=== PATIENT | female | born 1955 | race Caucasian/White ===

== ENCOUNTER 2016-12-29 12:53 | Emergency (ER) | payer OTHER ==
[2016-12-29] MEDS ORDERED: TETANUS/DIPHTHERIA/PERTUSSIS 0.5 ML SYRINGE IM ONE ×2 (15:50→15:57)
[2016-12-29] MEDS ORDERED: AMOX/CLAV 875 MG/125 MG TABLET PO STA (15:50)
[2016-12-29] MEDS ORDERED: AMOX/CLAV 875 MG/125 MG TABLET PO ONE (15:57)
== END 2016-12-29 16:18 | disposition home or self-care (01) ==
DX: S61.251A Open bite of left index finger without damage to nail, initial encounter (principal); L08.9 Local infection of the skin and subcutaneous tissue, unspecified; W54.0XXA Bitten by dog, initial encounter; Z23 Encounter for immunization
CPT/HCPCS: 90471; 90715; 99283; A9270

== ENCOUNTER 2017-06-23 10:29 | Outpatient (CLI) | payer OTHER ==
--- NOTE | 2017-06-23 13:07 | XRAY Report ---
RIGHT HIP AND PELVIS: 06/23/2017 CLINICAL INDICATION: Pain. FINDINGS: Frontal view of the hips and pelvis and frogleg lateral view of the right hip demonstrate [id number] right hip osteoarthritis, with subchondral cysts and joint space narrowing. There is no evidence of acute fracture or dislocation. The left hip appears unremarkable. IMPRESSION: [id number] RIGHT HIP OSTEOARTHRITIS. JOB #: [id number] EXT JOB #:[id number]
== END 2017-06-23 10:30 | disposition home or self-care (01) ==
LOC: DI.S 10:29
PROVIDERS: ATTEND Internal Medicine
DX: M16.11 Unilateral primary osteoarthritis, right hip (principal)

== ENCOUNTER 2020-10-26 08:00 | Outpatient (CLI) | payer MEDICARE, OTHER | END 2020-10-26 23:59 | disposition home or self-care (01) | LOC: LAB.S 08:00 | PROVIDERS: ATTEND Emergency Medicine | DX: R30.0 Dysuria (principal) | CPT/HCPCS: 87086; 87181 ==

== ENCOUNTER 2021-02-12 13:48 | Outpatient (CLI) | payer MEDICARE, OTHER | END 2021-02-12 13:49 | disposition home or self-care (01) | LOC: RT 13:48 | PROVIDERS: ATTEND Nurse Practitioner Family | DX: R06.00 Dyspnea, unspecified (principal) | CPT/HCPCS: 94010; 94727; 94729 ==

== ENCOUNTER 2021-02-12 14:49 | Outpatient (CLI) | payer MEDICARE, OTHER ==
--- NOTE | 2021-02-12 16:15 | XRAY Report ---
PROCEDURE: Chest 2 View X-Ray INDICATIONS: DYSPNEA TECHNIQUE: 2 view(s) of the chest. COMPARISON: None. FINDINGS: Surgical changes and devices: None. Lungs and pleura: No pleural effusions or pneumothorax. There is a rounded density projecting over t he midthoracic spine on the lateral view which is not seen on the frontal view. Lungs are otherwise c lear. Mediastinum: Mediastinal contours are normal. Heart size is normal. Bones and chest wall: No suspicious bony abnormalities. Soft tissues appear unremarkable. IMPRESSION: Indeterminate opacity is described above, related either to the posterior lung parenchym a or the midthoracic spine. Chest CT with intravenous contrast is recommended for further assessment. Reviewed by: James Overton MD on 02/12/2021 4:13 PM PDT Approved by: James Overton MD on 02/12/2021 4:13 PM PDT Station ID: [id number]
== END 2021-02-12 14:50 | disposition home or self-care (01) ==
LOC: DI 14:49
PROVIDERS: ATTEND Nurse Practitioner Family
DX: R06.00 Dyspnea, unspecified (principal); R91.8 Other nonspecific abnormal finding of lung field
CPT/HCPCS: 94010; 94727; 94729

== ENCOUNTER 2021-03-20 12:19 | Outpatient (CLI) | payer MEDICARE, OTHER ==
[2021-03-20] MEDS ORDERED: IOPAMIDOL-300 100 ML VIAL ONE (12:35)
[2021-03-20 13:01] LABS: CREATININE 0.6 mg/dL (0.4-1.0)
[2021-03-20] MEDS ORDERED: IOPAMIDOL-300 100 ML VIAL IVP ONE (13:41)
--- NOTE | 2021-03-20 16:38 | CT Report ---
PROCEDURE: CHEST W INDICATIONS: Abnormal chest x-ray, severe COPD and possible lung mass seen on the lateral view overl sebastian the mid thoracic spine. CONTRAST: IV CONTRAST: Isovue 300 ml: 100 PO CONTRAST: *NO PO CONTRAST TECHNIQUE: After the administration of intravenous contrast, 5 mm thick sections acquired from the pulmonary api urszula to the posterior costophrenic angles. 7 mm thick coronal MIP reformats were acquired. For radia tion dose reduction, the following was used: automated exposure control, adjustment of mA and/or kV according to patient size. COMPARISON: None. FINDINGS: Image quality: Excellent. Lungs and pleura: No acute air space opacities. Lung volumes are large, COPD is suspected. No pleur al effusions or pneumothorax. Central and peripheral airways are patent and normal in caliber. Mediastinum: Heart size is normal. No pericardial effusion. No mediastinal or hilar adenopathy by size criteria. Thoracic aorta and central pulmonary arteries are normal in size. Esophagus is holley l in caliber. No hiatal hernia. Bones and chest wall: No suspicious bony lesions. No vertebral body compression fractures. No axil mayelin or supraclavicular adenopathy by size criteria. Thyroid gland appears normal where well seen.. Abdomen: Visualized upper abdominal solid organs appear normal. Upper abdominal bowel loops are nor mal in caliber. IMPRESSION: At the mid thoracic spine there is relatively prominent degree of degenerative disc disease with seco ndary sclerosis along the endplates of several of the vertebral bodies. Superimposition of this radio density on the spine and superimposed on additional chest wall structures appears to have created the radiodensity of recent plain film concern. There is no lung mass is found. No sign of osteoblastic b one lesion to explain this appearance. Depending on the clinical status follow-up screening CT scanning for early development of lung carcin yan may be warranted for this patient. Please correlate with extensive prior smoking history. Reviewed by: Oh Logan MD on 03/20/2021 4:37 PM PDT Approved by: Oh Logan MD on 03/20/2021 4:37 PM PDT Station ID: [id number]
== END 2021-03-20 12:20 | disposition home or self-care (01) ==
LOC: DI 12:19
PROVIDERS: ATTEND Nurse Practitioner Family
DX: M51.34 Other intervertebral disc degeneration, thoracic region (principal)
CPT/HCPCS: 36415; 71260; 82565; Q9967

== ENCOUNTER 2021-09-16 08:00 | Outpatient (CLI) | payer MEDICARE, OTHER ==
--- NOTE | 2021-09-16 16:51 | XRAY Report ---
PROCEDURE: Chest 2 View X-Ray INDICATIONS: SHORTNESS OF BREATH TECHNIQUE: 2 views of the chest. COMPARISON: None available. Prior study of 02/12/2021 unavailable at the time of dictation. FINDINGS: Surgical changes and devices: None. Lungs and pleura: No pleural effusions or pneumothorax. There is hyperinflation of the lungs with f lattening of the hemidiaphragms compatible with COPD. No acute consolidation. Mediastinum: Mediastinal contours are normal. Heart size is normal. Bones and chest wall: No suspicious bony abnormalities. Soft tissues appear unremarkable. IMPRESSION: 1. Findings compatible with COPD. 2. No definite acute cardiopulmonary disease. Reviewed by: Micheal Gordon MD on 09/16/2021 4:50 PM PDT Approved by: Micheal Gordon MD on 09/16/2021 4:50 PM PDT Station ID: [id number]
== END 2021-09-16 23:59 | disposition home or self-care (01) ==
LOC: DI.S 08:00
PROVIDERS: ATTEND Nurse Practitioner
DX: J44.9 Chronic obstructive pulmonary disease, unspecified (principal)

== ENCOUNTER 2021-12-26 08:00 | Outpatient (CLI) | payer MEDICARE, OTHER | END 2021-12-26 23:59 | LOC: LAB 08:00 | PROVIDERS: ATTEND Physician Assistant | DX: J06.9 Acute upper respiratory infection, unspecified (principal); Z20.822 Contact with and (suspected) exposure to COVID-19 ==

== ENCOUNTER 2022-09-21 15:03 | Emergency (ER) | payer MEDICARE, OTHER ==
[2022-09-21 15:28] VITALS: BP 143/71
[2022-09-21] MEDS ORDERED: BACITRACIN ZINC OINT 1 PACKET TOP STA (15:58)
[2022-09-21] MEDS ORDERED: AMOX/CLAV 875 MG/125 MG TABLET PO STA (15:58)
--- NOTE | 2022-09-21 15:59 | ED Physician Documentation ---
PD HPI UPPER EXT INJURY - Stated complaint Stated Complaint: RT HAND LAC - Chief complaint Chief Complaint: Laceration - History obtained from History obtained from: Patient - Additonal information Additional information: About 6:00 last night her dog bit her on the right hand. She is not up-to-date on tetanus. She does have a wound there. No other injuries. Of note she did not know when her last tetanus shot is but we have one on record from 2017 so she is current. Review of Systems Constitutional: reports: Reviewed and negative Ears: reports: Reviewed and negative Nose: reports: Reviewed and negative PD PAST MEDICAL HISTORY - Present Medications Home Medications: Ambulatory Orders Medication Instructions Recorded Confirmed Amoxicillin/Potassium Clav 1 each PO Q12H #14 tablet 12/29/16 [Augmentin 875-125 Tablet] Duloxetine HCl [Cymbalta] 60 mg DAILY 12/29/16 12/29/16 Amox/Clav 875/125 [Augmentin] 1 each PO Q12H #10 tablet 09/21/22 - Allergies Allergies/Adverse Reactions: Allergies Allergy/AdvReac Type Severity Reaction Status Date / Time No Known Drug Allergies Allergy Verified 09/21/22 15:24 PD ED PE NORMAL - Vitals Vital signs reviewed: Yes - General General: Alert and oriented X 3, No acute distress - Extremities Extremities: Other (Over the dorsum of the first metacarpal of the right hand there is a 2 cm V-shaped flap laceration that is shallow and not gaping.) - Neuro Neuro: Alert and oriented X 3, Normal speech Results - Vitals Vitals: Vital Signs - 24 hr 09/21/22 15:24 Temperature 37.1 C Heart Rate 82 Respiratory 16 Rate Blood Pressure 143/71 H O2 Saturation 100 Oxygen O2 Source Room air PD MEDICAL DECISION MAKING - ED course ED course: Her laceration was irrigated and she is started on antibiotics. Counseled on wound care. No active infection now. It is too old to suture. Departure - Departure Disposition: 01 Home, Self Care Clinical Impression: Dog bite of right hand Qualifiers: Encounter type: initial encounter Qualified Code(s): S61.451A - Open bite of right hand, initial encounter; W54.0XXA - Bitten by dog, initial encounter Condition: Good Record reviewed to determine appropriate education?: Yes Instructions: ED Bite Dog Prescriptions: Amox/Clav 875/125 [Augmentin] 1 each PO Q12H #10 tablet Comments: You can wash it with soap and water and then apply bacitracin ointment which is available [id number], and dressing of your choice. Likely will need to keep doing this for a week or 2 until it is fully healed. Return for new or worsening symptoms including signs of infection which would include redness, drainage, increased pain, swelling, or fever.
== END 2022-09-21 16:07 | disposition home or self-care (01) ==
LOC: ED 15:03
DX: S61.451A Open bite of right hand, initial encounter (principal); W54.0XXA Bitten by dog, initial encounter
CPT/HCPCS: 99282; A9270

== ENCOUNTER 2023-10-29 08:00 | Outpatient (CLI) | payer MEDICARE, OTHER | END 2023-10-29 08:01 | disposition home or self-care (01) | LOC: LAB.S 08:00 | PROVIDERS: ATTEND Emergency Medicine | DX: R05.9 Cough, unspecified (principal) ==

== ENCOUNTER 2023-11-25 08:00 | Outpatient (CLI) | payer MEDICARE, OTHER ==
--- NOTE | 2023-11-25 18:34 | XRAY Report ---
PROCEDURE: Finger(s) RT INDICATIONS: PUNTURE WOUND WITH FOREIGN BODY OF RIGHT MIDDLE FINGER TECHNIQUE: AP hand, 2 views of the third finger(s) acquired. COMPARISON: None. FINDINGS: Bones: No fractures or dislocations. No suspicious bony lesions. Soft tissues: There is a linear radiopaque foreign body in the volar aspect of the distal middle fing er at the level of distal middle phalanx. There is soft tissue swelling. No suspicious soft tissue ca lcifications or masses. IMPRESSION: A linear radiopaque foreign body in the medial finger. Reviewed by: Nitesh Ang MD on 11/25/2023 6:32 PM PST Approved by: Nitesh Ang MD on 11/25/2023 6:32 PM PST Station ID: [id number]
== END 2023-11-25 23:59 | disposition home or self-care (01) ==
LOC: DI.S 08:00
PROVIDERS: ATTEND Physician Assistant Medical
DX: S61.242A Puncture wound with foreign body of right middle finger without damage to nail, initial encounter (principal)

== ENCOUNTER 2024-01-18 13:12 | Outpatient (CLI) | payer MEDICARE, OTHER ==
[2024-01-18 19:56] LABS: BASOPHILS % (AUTO) 0.8 %; EOSINOPHILS # (AUTO) 0.1 10^3/uL (0.0-0.7); EOSINOPHILS % (AUTO) 1.7 %; HCT - HEMATOCRIT 35.6 % (37.0-47.0); HGB - HEMOGLOBIN 11.6 g/dL (12.0-16.0); LYMPHOCYTES # (AUTO) 1.4 10^3/uL (1.5-3.5); LYMPHOCYTES % (AUTO) 25.6 %; MEAN CORPUSCULAR HGB CONC 32.6 g/dL (32.0-36.0); MEAN CORPUSCULAR VOLUME 95.2 fL (81.0-99.0); MEAN PLATELET VOLUME 9.2 fL (7.9-10.8); MONOCYTES # (AUTO) 0.5 10^3/uL (0.0-1.0); MONOCYTES % (AUTO) 9.4 %; NEUTROPHILS # (AUTO) 3.3 10^3/uL (1.5-6.6); NEUTROPHILS % (AUTO) 62.3 %; PLT - PLATELET COUNT 311 10^3/uL (130-450); RED BLOOD COUNT 3.74 10^6/uL (4.20-5.40); RED CELL DISTRIBUTION WIDTH 13.5 % (12.0-15.0); WHITE BLOOD COUNT 5.3 x10^3/uL (4.8-10.8)
[2024-01-18 20:07] LABS: ALBUMIN 4.3 g/dL (3.2-5.5); ALBUMIN/GLOBULIN RATIO 1.9 (1.0-2.2); ALKALINE PHOSPHATASE 56 IU/L (42-121); ALT ALANINE AMINOTRANSFERASE 16 IU/L (10-60); AST ASPARTATE AMINOTRANSFERASE 19 IU/L (10-42); BILIRUBIN,TOTAL 0.6 mg/dL (0.2-1.0); BUN - BLOOD UREA NITROGEN 10 mg/dL (6-20); CALCIUM 9.8 mg/dL (8.5-10.3); CARBON DIOXIDE - CO2 25 mmol/L (21-32); CHLORIDE 102 mmol/L (101-111); CHOL/HDL RATIO 2.1 (<4.4); CHOLESTEROL 194 mg/dL; CREATININE 0.6 mg/dL (0.6-1.3); GFR - MDRD 99 (>89); GLUCOSE 97 mg/dL (74-104); HDL CHOLESTEROL 94 mg/dL; LDL CHOLESTEROL,CALCULATED 88 mg/dL; LDL/HDL RATIO 0.9 (<4.4); POTASSIUM 4.1 mmol/L (3.5-4.5); SODIUM 134 mmol/L (135-145); TOTAL PROTEIN 6.6 g/dL (6.4-8.9); TRIGLYCERIDES 61 mg/dL (48-352); VLDL CHOLESTEROL 12 mg/dL
[2024-01-18 20:24] LABS: THYROID STIMULATING HORMONE 2.57 uIU/mL (0.34-5.60)
[2024-01-18 20:52] LABS: ESTIMATED AVERAGE GLUCOSE 105 mg/dL (70-100); HEMOGLOBIN A1c% 5.3 % (4.27-6.07)
== END 2024-01-18 13:13 | disposition home or self-care (01) ==
LOC: LAB.S 13:12
PROVIDERS: ATTEND Internal Medicine
DX: E55.9 Vitamin D deficiency, unspecified (principal); R53.83 Other fatigue; R06.02 Shortness of breath; Z13.220 Encounter for screening for lipoid disorders
CPT/HCPCS: 36415; 80053; 80061; 82306; 82330; 83036; 83721; 83970; 84443; 85025

== ENCOUNTER 2024-02-10 15:41 | Outpatient (CLI) | payer MEDICARE, OTHER ==
[2024-02-10] MEDS ORDERED: iohexoL-300 150 ML BOTTLE ONE (15:59)
[2024-02-10] MEDS: iohexoL-300 100 ML VIAL IVP ONE (16:21)
--- NOTE | 2024-02-11 08:36 | CT Report ---
PROCEDURE: Chest W INDICATIONS: SHORTNESS OF BREATH CONTRAST: OMNI 300 100 ML TECHNIQUE: After the administration of intravenous contrast, a CT scan of the chest was performed. Images were recorded and evaluated at appropriate window settings. Reformats: axial MIP of the chest, coronal and sagittal. For radiation dose reduction, the following was used: automated exposure control, adjustme nt of mA and/or kV according to patient size. COMPARISON: CT chest, 03/20/2021. FINDINGS: Image quality: Diagnostic. Chest wall and lower neck: No thyroid nodule which requires sonographic follow up. No axillary or sup raclavicular adenopathy by size. Lungs and pleura: Lungs are hyperinflated. Mild bronchial wall thickening and nodularity bilaterally with bronchitis. A spiculated density in the posterior right apex, unchanged since the last exam, com patible with a pleural-parenchymal scar. No consolidation. No pleural effusions. No pneumothorax. No suspicious pulmonary nodules which require follow up. Mediastinum: Heart size is normal. Mild coronary calcification. No pericardial effusion. No large ves levi abnormality. No mediastinal adenopathy by size criteria. Bones: No aggressive osseous abnormality. Moderate spondylitic changes in thoracic and upper lumbar s pine. Upper Abdomen: Unremarkable. IMPRESSION: 1. Mild bronchial wall thickening and nodularity compatible with bronchitis. 2. Hyperinflation consistent COPD. 3. Right apical scarring. 4. Moderate spondylitic changes. Reviewed by: Nitesh Ang MD on 02/11/2024 8:34 AM PDT Approved by: Nitesh Ang MD on 02/11/2024 8:34 AM PDT Station ID: [id number]
== END 2024-02-10 15:42 | disposition home or self-care (01) ==
LOC: DI 15:41
PROVIDERS: ATTEND Internal Medicine
DX: R91.8 Other nonspecific abnormal finding of lung field (principal); M47.816 Spondylosis without myelopathy or radiculopathy, lumbar region; M47.814 Spondylosis without myelopathy or radiculopathy, thoracic region
CPT/HCPCS: 71260; Q9967

== ENCOUNTER 2024-02-25 16:32 | Outpatient (CLI) | payer MEDICARE, OTHER | END 2024-02-25 16:33 | disposition home or self-care (01) | LOC: RT 16:32 | PROVIDERS: ATTEND Internal Medicine | DX: R06.02 Shortness of breath (principal) | CPT/HCPCS: 94010 ==

== ENCOUNTER 2024-03-01 10:50 | Outpatient (CLI) | payer MEDICARE, OTHER ==
--- NOTE | 2024-03-01 11:48 | DEXA Report ---
PROCEDURE: Dexa Spine and/or Hip INDICATIONS: POST MENOPAUSAL TECHNIQUE: Dual energy x-ray absorptiometry (DXA) was performed on a [employer]. Regions measur ed are the AP Spine, femoral neck, and if needed forearm. COMPARISON: None FINDINGS: Lumbar Spine (L1-L2): Levoconvex curvature of the lumbar spine centered at L4. Bone Mineral Density: 0.909 g/cm/cm,T score: -2.1. Left Femoral Neck: Bone Mineral Density: 0.648 g/cm/cm, T score: -2.8. Left Hip: Bone Mineral Density: 0.697 g/cm/cm,T score: -2.5. (T score greater or equal to -1.0: NORMAL) (T score from -1.1 to -2.4: OSTEOPENIA) (T score less than or equal to -2.5 to: OSTEOPOROSIS) Impression: By WHO criteria, this patient has osteoporosis. Patients with diagnosis of osteoporosis or osteopenia should have regular bone mineral density assess ment. For those eligible for Medicare, routine testing is allowed once every 2 years. Testing frequ ency can be increased for patients who have rapidly progressing disease or for those who are receivin g medical therapy to restore bone mass. Reviewed by: Lavinia Reyes MD on 03/01/2024 11:47 AM PDT Approved by: Lavinia Reyes MD on 03/01/2024 11:47 AM PDT Station ID: [id number]
== END 2024-03-01 10:51 | disposition home or self-care (01) ==
LOC: DI 10:50
PROVIDERS: ATTEND Internal Medicine
DX: Z13.9 Encounter for screening, unspecified (principal); M81.0 Age-related osteoporosis without current pathological fracture; Z78.0 Asymptomatic menopausal state

== ENCOUNTER 2024-03-01 11:16 | Outpatient (CLI) | payer MEDICARE, OTHER ==
[2024-03-01 11:32] LABS: BASOPHILS % (AUTO) 0.4 %; EOSINOPHILS # (AUTO) 0.1 10^3/uL (0.0-0.7); EOSINOPHILS % (AUTO) 3.1 %; HCT - HEMATOCRIT 38.5 % (37.0-47.0); HGB - HEMOGLOBIN 12.7 g/dL (12.0-16.0); LYMPHOCYTES % (AUTO) 22.8 %; MEAN CORPUSCULAR HEMOGLOBIN 31.8 pg (27.0-31.0); MEAN CORPUSCULAR VOLUME 96.3 fL (81.0-99.0); MEAN PLATELET VOLUME 8.3 fL (7.9-10.8); MONOCYTES # (AUTO) 0.4 10^3/uL (0.0-1.0); MONOCYTES % (AUTO) 9.4 %; NEUTROPHILS # (AUTO) 2.9 10^3/uL (1.5-6.6); NEUTROPHILS % (AUTO) 64.1 %; PLT - PLATELET COUNT 235 10^3/uL (130-450); RED CELL DISTRIBUTION WIDTH 12.8 % (12.0-15.0); WHITE BLOOD COUNT 4.6 x10^3/uL (4.8-10.8)
[2024-03-01 12:09] LABS: FERRITIN 25.4 ng/mL (11.0-306.8)
== END 2024-03-01 11:17 | disposition home or self-care (01) ==
LOC: LAB 11:16
PROVIDERS: ATTEND Internal Medicine
DX: D50.0 Iron deficiency anemia secondary to blood loss (chronic) (principal)
CPT/HCPCS: 36415; 82728; 83540; 84466; 85025